=== PATIENT | female | born 1930 | race Caucasian/White ===

== ENCOUNTER 2016-10-27 13:10 | Inpatient (IN) | payer BC ==
[~2016-10-27] VITALS: Ht 157.5 cm; Wt 68.2 kg
[2016-10-27] MEDS ORDERED: DILTIAZEM-D5W 125MG/125ML DRIP 125 ML IV STA (13:21)
[2016-10-27] MEDS ORDERED: NITROGLYCERIN (SL) 0.4 MG TAB SL PRN ×2 (13:30→19:00)
[2016-10-27] MEDS ORDERED: FUROSEMIDE 40 MG INJ IV ONE (13:30)
[2016-10-27] MEDS: DILTIAZEM 25 MG INJ IV STA ×2 (13:30→13:53)
[2016-10-27 13:51] LABS: AADO2 Arterial 255.7 mmHg (7.0-24.0); Allen Test ACCEPTAB; Arterial Base Excess 0 mmol/L (-3.0-3); Arterial COHb 0 % (0.0-3.0); Arterial Fraction of Oxyhgb 99.2 % (93.0-99.0); Arterial HCO3 20.9 mmol/L (22.0-26.0); Arterial MetHb 0.2 % (0.0-1.5); Arterial Total Hemglobin 12.4 g/dl (12.0-18.0); Blood Gas IEPAP 15/5; MODE MASK - BIPAP
[2016-10-27 13:54] LABS: BASOPHILS % 0.4 % (0.0-2.0); EOSINOPHILS # 0.1 10^3/ul (0.0-0.5); HEMATOCRIT 37.3 % (37.0-47.0); HEMOGLOBIN 12.2 g/dl (12.0-16.0); LYMPHOCYTES # 2.3 10^3/ul (0.8-2.9); MEAN CORPUSCULAR HEMOGLOBIN 27.7 pg (29.0-33.0); MEAN CORPUSCULAR HGB CONC 32.8 g/dl (32.0-37.0); MEAN CORPUSCULAR VOLUME 84.5 fl (82.0-101.0); MEAN PLATELET VOLUME 8.6 fl (7.4-10.4); MONOCYTE # 0.5 10^3/ul (0.3-0.9); MONOCYTES % 6.3 % (0.0-11.0); NEUTROPHIL # 4.7 10^3/ul (1.6-7.5); NEUTROPHILS % 62.3 % (39.0-77.0); PLATELET COUNT 270 10^3/UL (140-440); RED BLOOD COUNT 4.42 10^6/ul (4.20-5.40); RED CELL DISTRIBUTION WIDTH 16.9 % (11.5-14.5); UNCORRECTED WBC 7.6 10^3/ul (4.8-10.8); WHITE BLOOD COUNT 7.6 10^3/ul (4.8-10.8)
[2016-10-27 13:55] LABS: ADD UMIC YES; URINE BILIRUBIN (Dip) NEGATIVE (NEGATIVE); URINE BLOOD (Dip) NEGATIVE (NEGATIVE); URINE COLOR LT. YELLOW (YELLOW); URINE GLUCOSE (Dip) NEGATIVE (NEGATIVE); URINE KETONES (Dip) NEGATIVE (NEGATIVE); URINE LEUKOCYTE ESTERASE (Dip) TRACE (NEGATIVE); URINE NITRITE (Dip) NEGATIVE (NEGATIVE); URINE TOTAL PROTEIN (Dip) NEGATIVE (NEGATIVE); URINE UROBILINOGEN (Dip) 0.2 E.U./dL (0.1-1.0)
[2016-10-27] MEDS ORDERED: HYDR-3671 PO (13:56)
--- NOTE | 2016-10-27 13:56 | RADRPT ---
PROCEDURE: XR Chest. CLINICAL INDICATION: Shortness of breath TECHNIQUE: Single AP portable chest COMPARISON: None. FINDINGS: The cardiomediastinal silhouette is within normal limits of size . Atherosclerotic calcification of the aortic arch. Hypoventilatory changes. .The lungs are clear without pleural effusion or focal c onsolidation. No pneumothorax. The osseous structures and soft tissues are unremarkable. IMPRESSION: 1. Hypoventilatory changes. No acute intrathoracic abnormality.. RPTAT:AAJJ Physician Brendan Date Time Electronically viewed and signed by Physician Brendan on 10/27/2016 13:56 GRAY/
[2016-10-27] MEDS ORDERED: THY15 PO (13:57)
[2016-10-27 13:58] LABS: CONDITION 1; INR 0.94; LH ANALYZER COMMENTS 1; PROTIME 12.6 Sec (12.2-14.2)
[2016-10-27] MEDS ORDERED: METO-448 PO (13:58)
[2016-10-27] MEDS ORDERED: SIMV10TA PO (13:58)
[2016-10-27 13:59] LABS: PARTIAL THROMBOPLASTIN TIME 32.1 Sec (25.0-35.0)
[2016-10-27] MEDS ORDERED: LISI40TA9 PO (13:59)
[2016-10-27] MEDS ORDERED: RIVA15TA PO (13:59)
[2016-10-27] MEDS ORDERED: FURO40TA4 PO (13:59)
[2016-10-27 14:02] LABS: ALBUMIN 4.4 g/dl (3.3-4.9); POTASSIUM 3.8 mmol/L (3.5-5.1)
[2016-10-27 14:03] LABS: SQUAMOUS EPITHELIAL CELL,UR FEW; URINE RBCS NONE SEEN /HPF (0)
[2016-10-27 14:04] LABS: BILIRUBIN,INDIRECT 0.3 mg/dl (0-1.1); BILIRUBIN,TOTAL 0.3 mg/dl (0.2-1.3); CREATININE 1.3 mg/dl (0.44-1.00)
[2016-10-27 14:05] LABS: ALBUMIN/GLOBULIN RATIO 1.22; CALCIUM 9.6 mg/dl (8.4-10.2)
[2016-10-27 14:17] LABS: TROPONIN-I 0.023 ng/ml (0.00-0.12)
[2016-10-27] MEDS ORDERED: SOD CHLORIDE 0.9% 100 ML ONE ×2 (15:04→15:30)
[2016-10-27] MEDS ORDERED: IODIXANOL LOCM 50 ML BTL ONE (15:04)
[2016-10-27] MEDS ORDERED: IODIXANOL LOCM 100 ML BTL ONE ×2 (15:04→15:30)
--- NOTE | 2016-10-27 16:19 | RADRPT ---
PROCEDURE: CT Pulmonary Angiogram. CLINICAL INDICATION: Chest pain and shortness of breath. TECHNIQUE: CT pulmonary angiogram and a CT scan of the chest with contrast was performed. The pat ient was scanned following the uncomplicated intravenous administration of 115 cc of Visipaque 320 i ntravenous contrast. 2-D coronal reformatted images were obtained from the axial source images. In addition, 3-D post processing was performed. Total exam DLP is 1205.48 mGy-cm. CTDIvol is 49.29 m Gy. One or more of the following dose reduction techniques were used: Automated exposure control, a djustment of the mA and/or kV according to patient size, use of iterative reconstruction technique. COMPARISON: None available. FINDINGS: The central pulmonary arteries are enlarged consistent with pulmonary artery hypertension. The pulm onary arteries are otherwise normal with no filling defect or lack of enhancement to suggest pulmona ry artery embolism. There is mild atelectasis at the lung bases posteriorly. The lungs are otherwise clear with no othe r airspace or interstitial disease. There is no pulmonary nodule or mass lesion. There is no pneumothorax. There is no mediastinal or hilar lymphadenopathy or mass. There is no pleural effusion. There is no pericardial effusion. The thoracic aorta is not dilated. There is calcification in the aorta consistent with atherosclero sis. There is no evidence of aortic dissection. Images through the upper abdomen demonstrate normal visualized portions of the spleen and adrenals. There is possible intrahepatic biliary dilatation. There is thoracic scoliosis convex left. The osseous structures are otherwise unremarkable. IMPRESSION: 1. Pulmonary artery hypertension. 2. No evidence of pulmonary artery embolism. 3. Mild atelectasis at the lung bases posteriorly. 4. Atherosclerosis. 5. Possible intrahepatic biliary dilatation. Clinical correlation advised. 6. Thoracic scoliosis convex left. RPTAT: QQ .Fili Richards MD, MD Date Time Electronically viewed and signed by .Fili Richards MD, MD on 10/27/2016 16:18 .R/
--- NOTE | 2016-10-27 17:28 | ERA ---
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 86-year-old female presents with shortness of breath. EMS reports that the patient became short of breath and had palpitations at home. The patient is extremely anxious and having difficulty providing adequate history. It appears that just prior to arrival she started feel her heart race and was short of breath. In the ER she continues describes shortness of breath. She denies any chest pain or pressure she denies any pleuritic pain, no headache. No fevers or chills or cough. ROS All systems reviewed and are negative except as per history of present illness. Medications Home Meds Reported Medications Rivaroxaban* (Xarelto*) 15 Mg Tablet, 15 MG PO DAILY, TAB 10/27/16 Lisinopril* (Lisinopril*) 40 Mg Tablet, 40 MG PO DAILY, #30 TAB 10/27/16 Furosemide* (Furosemide*) 40 Mg Tablet, 40 MG PO BID, TAB 10/27/16 Simvastatin* (Zocor*) 10 Mg Tablet, 10 MG PO QHS, #30 TAB 10/27/16 Metoprolol Tartrate* (Lopressor*) 25 Mg Tab, 12.5 MG PO BID, #60 TAB 10/27/16 Thyroid* ([place] Thyroid*) 15 Mg Tab, 15 MG PO DAILY, TAB 10/27/16 Hydralazine Hcl* (Hydralazine Hcl*) 25 Mg Tab, 25 MG PO BID Y for ELEVATED BLOOD PRESSURE, #90 TAB 10/27/16 Allergies Allergies: Coded Allergies: No Known Allergy (Verified , 10/27/16) PMhx/Soc Hx Cardiac Disorders: Yes (HTN, A fib, hypothyroid, ) Hx Alcohol Use: No Hx Substance Use: No Hx Tobacco Use: No Smoking Status: Unknown if ever smoked FmHx Family History: No diabetes Physical Exam Vitals Vital Signs Date Time Temp Pulse Resp B/P Pulse Ox O2 Delivery O2 Flow Rate FiO2 10/27/16 16:38 80 18 155/70 100 10/27/16 15:15 90 100 100 10/27/16 15:00 88 17 157/124 100 BIPAP 10/27/16 14:30 97.5 89 163/85 100 10/27/16 14:00 92 18 147/89 100 BIPAP 10/27/16 13:45 96 24 164/94 100 BIPAP 10/27/16 13:44 98 100 100 10/27/16 13:19 98.4 137 20 168/119 98 Physical Exam General: Uncomfortable and appears in distress Head: Normocephalic, atraumatic. Eyes: Pupils equally reactive, EOM intact ENT: Moist mucous membranes Neck: Supple, no lymphadenopathy Respiratory: Rales bilaterally, slight tachypnea Cardiovascular: Tachycardia, irregularly irregular, no murmurs, rubs, or gallops Abdominal: Soft, non-tender, non-distended, no peritoneal signs : Deferred MSK: No edema, no unilateral swelling, 5/5 strength Neurologic: Alert and oriented, moving all extremities, normal speech, no focal weakness, no cerebellar signs Skin: No rash Psych: Normal mood Result Diagram: 10/27/16 1336 10/27/16 1336 Results 24 hrs Laboratory Tests Test 10/27/16 13:21 10/27/16 13:36 10/27/16 13:46 Arterial Blood HCO3 20.9mmol/L Arterial Blood Base Excess 0mmol/L Arterial Blood Oxygen Saturation 99.4mmHG Alen Test ACCEPTAB Arterial Blood Gas Puncture Site Right Radial Arterial Blood Carboxyhemoglobin 0% Arterial Blood Date Drawn 10/27/2016 1:40:37 PM Arterial Blood Methemoglobin 0.2% Arterial Blood pCO2 (Temp correct) 24.3mmhg Arterial Blood pH (Temp corrected) 7.552 Arterial Blood pO2 (Temp corrected) 433.0mmHG Blood Gas A-a O2 Differential 255.7mmHg Blood Gas Actual Respiration Rate 40 Blood Gas Critical Value Read Back DR WOODSON Blood Gas IPAP/EPAP Ratio 24/01 Blood Gas Modality MASK - BIPAP Blood Gas Notified Time 10/27/2016 1:51:37 PM Blood Gas Notified Whom NENA Blood Gas Respiration Rate 16.0 Blood Gas Specimen Source Blood arterial Blood Gas Temperature 37.0C FiO2 100.0% Oxyhemoglobin Percent 99.2% Total Hemoglobin 12.4g/dl Activated Partial Thromboplast Time 32.1Sec Alanine Aminotransferase (ALT/SGPT) 32IU/L Albumin 4.4g/dl Albumin/Globulin Ratio 1.22 Alkaline Phosphatase 130IU/L Anion Gap 19 Aspartate Amino Transf (AST/SGOT) 41IU/L B-Type Natriuretic Peptide 1230PG/ML Basophils # 0.010^3/ul Basophils % 0.4% Blood Morphology Comment Blood Urea Nitrogen 21mg/dl Calcium Level 9.6mg/dl Carbon Dioxide Level 25mmol/L Chloride Level 99mmol/L Creatinine 1.30mg/dl Direct Bilirubin 0.00mg/dl Eosinophils # 0.110^3/ul Eosinophils % 1.0% Globulin 3.60g/dl Glucose Level 99mg/dl Hematocrit 37.3% Hemoglobin 12.2g/dl INR International Normalized Ratio 0.94 Indirect Bilirubin 0.3mg/dl Lymphocytes # 2.310^3/ul Lymphocytes % 30.0% Mean Corpuscular Hemoglobin 27.7pg Mean Corpuscular Hemoglobin Concent 32.8g/dl Mean Corpuscular Volume 84.5fl Mean Platelet Volume 8.6fl Monocytes # 0.510^3/ul Monocytes % 6.3% Neutrophils # 4.710^3/ul Neutrophils % 62.3% Nucleated Red Blood Cells # 0.010^3/ul Nucleated Red Blood Cells % 0.0/100WBC Platelet Count 06108^3/UL Potassium Level 3.8mmol/L Prothrombin Time 12.6Sec Prothrombin Time Ratio 1.0 Red Blood Count 4.4210^6/ul Red Cell Distribution Width 16.9% Sodium Level 139mmol/L Total Bilirubin 0.3mg/dl Total Protein 8.0g/dl Troponin I 0.023ng/ml White Blood Count 7.610^3/ul Urine Bilirubin NEGATIVE Urine Clarity CLEAR Urine Color LT. YELLOW Urine Glucose NEGATIVE% Urine Hemoglobin NEGATIVE Urine Ketones NEGATIVE Urine Leukocyte Esterase TRACE Urine Microscopic RBC NONE SEEN/HPF Urine Microscopic WBC 2-5/HPF Urine Nitrite NEGATIVE Urine Specific [place] <=1.005 Urine Squamous Epithelial Cells FEW Urine Total Protein NEGATIVE Urine Urobilinogen 0.2 E.U./dL Urine pH 5.5 Current Medications Medications (Trade) Dose Ordered Sig/Joel Route PRN Reason Start Time Stop Time Status Last Admin Dose Admin Diltiazem HCl 10 mg 10 mg ONCE STAT IV 10/27/16 13:21 10/27/16 13:24 DC Diltiazem HCl (Cardizem-D5W 125 Mg/125 ml Drip) 125 ml @ 5 mls/hr ONCE STAT IV 10/27/16 13:21 10/28/16 14:20 Nitroglycerin (Nitroglycerin (Sl Tab) 0.4 Mg) 1 tab Q5M UP TO 3 DOSES PRN SL CHEST PAIN 10/27/16 13:30 10/27/16 13:34 Furosemide (Lasix) 40 mg ONCE ONCE IV 10/27/16 13:30 10/27/16 13:31 DC 10/27/16 13:35 IV Flush 10 ml 10 ml STK-MED ONCE .ROUTE 10/27/16 15:04 10/27/16 15:05 DC 10/27/16 15:04 Sodium Chloride (NS) 100 ml @ ud STK-MED ONCE .ROUTE 10/27/16 15:04 10/27/16 15:05 DC 10/27/16 15:04 Iodixanol (Visipaque Locm) 100 ml STK-MED ONCE .ROUTE 10/27/16 15:04 10/27/16 15:05 DC 10/27/16 15:04 Iodixanol (Visipaque Locm) 50 ml STK-MED ONCE .ROUTE 10/27/16 15:04 10/27/16 15:05 DC 10/27/16 15:04 IV Flush 10 ml 10 ml STK-MED ONCE .ROUTE 10/27/16 15:30 10/27/16 15:31 DC 10/27/16 16:12 Sodium Chloride (NS) 100 ml @ ud STK-MED ONCE .ROUTE 10/27/16 15:30 10/27/16 15:31 DC 10/27/16 16:12 Iodixanol (Visipaque Locm) 100 ml STK-MED ONCE .ROUTE 10/27/16 15:30 10/27/16 15:31 DC 10/27/16 16:12 Procedures/MDM EKG, MONITORS, & DIAGNOSTIC IMAGING: EKG #1: 1315 EKG: I reviewed and interpreted a 12-lead EKG. Rhythm: A. fib with RVR Ectopy: None Intervals: No abnormalities ST segments: Subtle ST elevations in V1 and V2 less than 1 mm, ST depressions in lateral leads possibly rate related T waves: No contiguous inversions EKG #2 at 1416 EKG: I reviewed and interpreted a 12-lead EKG. Rhythm: Normal sinus rhythm Ectopy: None Intervals: No abnormalities ST segments: No elevations or depressions T waves: No contiguous inversions Chest x-ray: I reviewed and interpreted a 1 view of the chest Mediastinum: No enlargement Cardiac No cardiomegaly Airspace: Interstitial process, left-sided pleural effusion Bones: No evidence of fracture CT chest IMPRESSION: 1. Pulmonary artery hypertension. 2. No evidence of pulmonary artery embolism. 3. Mild atelectasis at the lung bases posteriorly. 4. Atherosclerosis. 5. Possible intrahepatic biliary dilatation. Clinical correlation advised. 6. Thoracic scoliosis convex left. RPTAT: QQ LAB INTERPRETATION: Negative troponin elevated BNP MEDICAL DECISION MAKING: The patient presents complaining of shortness of breath. Clinically she appeared to be in A. fib with RVR. She was appropriately anticoagulated with Xarelto. However, the patient appeared to have significant oxygen starvation. She appeared to be in distress. She had rales at the bases. This was concerning for possible flash pulmonary edema. The patient was given nitroglycerin, Lasix and started on positive pressure ventilation with dramatic improvement. However, the patient's chest x-ray did not exactly match with her clinical presentation. This is possibly related to interval improvement however I cannot rule out pulmonary embolism prompting CT of the chest. ER COURSE: The patient's CT shows no evidence of pulmonary embolism. The patient has had diuretic response. She has stabilized. She has no evidence of pneumonia. At this time I do believe the patient is stabilized and will benefit from admission I believe she is stable enough for telemetry. Continue close monitoring. The patient had interval improvement and was able to wean from positive pressure ventilation. The patient is now stable on supplemental O2. I kept the patient and/or family informed of laboratory and diagnostic imaging results throughout the emergency room course. DISPOSITION PLAN: Telemetry admission CONSULTATION: Accepting care team and consultations: I discussed the current laboratory data, diagnostic imaging and emergency care provided. Admitting team: Dr. Huerta Admitting team indication: Insurance directed Critical Care Note: Total time: 37 minutes Indication/Organ System Threat: Respiratory failure in the setting of hypertensive emergency, A. fib with RVR I spent the above amount of critical care time with the patient, not including billable procedures. This included chart review, consultations, repeat bedside evaluations, and titration of appropriate medications to prevent cardiopulmonary or respiratory collapse. Departure Diagnosis: Primary Impression: Atrial fibrillation with RVR Additional Impressions: Acute renal insufficiency Acute respiratory failure Qualified Code: J96.00 - Acute respiratory failure, unspecified whether with hypoxia or hypercapnia Acute pulmonary edema Hypertensive emergency Condition: Stable ALEXANDRE WOODSON MD Oct 27, 2016 17:28
[2016-10-27] MEDS ORDERED: ONDANSETRON 4 MG INJ IV PRN ×2 (18:00→19:00)
[2016-10-27] MEDS ORDERED: ACETAMINOPHEN 325 MG TAB PO PRN ×2 (18:00→19:00)
[2016-10-27] MEDS ORDERED: morphine 2 MG INJ IV PRN (19:00)
[2016-10-27] MEDS ORDERED: HYDROCODONE/APAP (5/325) TAB PO PRN (19:00)
[2016-10-27] MEDS ORDERED: NACL 0.9% 3 ML SYG IV SCH (19:00)
[2016-10-27] MEDS ORDERED: ZOLPIDEM 5 MG TAB PO PRN (19:00)
[2016-10-27 19:43] LABS: CK-MB 1.96 ng/ml (0.0-2.4)
[2016-10-27 19:46] LABS: TROPONIN-I 0.083 ng/ml (0.00-0.12)
--- NOTE | 2016-10-27 19:58 | HP ---
DATE OF ADMISSION: 10/27/2016 CHIEF COMPLAINT: Shortness of breath. HISTORY OF PRESENT ILLNESS: The patient is an 86-year-old female with a history of cardiac arrhythm ia, status post ablation several months ago. The patient also reports history of a hernia. Denies any heart failure. According to the patient's grandson who is at bedside and is providing history, the patient then developed shortness of breath and palpitations after taking some hydralazine. She has been on hydralazine for some time now. Immediately after she started feeling shortness of breat h and paramedics were called. She denies any chest pain now or before. She denies any other GI sym ptoms. No headaches, no fevers, chills. In the ED, the patient had a chest x-ray that showed no ac [place] abnormality. Chest CTA showed no PE. BNP was elevated at over 1000. The patient is requiring oxygen in the ER and she continues to feel short of breath. PAST MEDICAL HISTORY: Arrhythmia, status post ablation, some arrhythmia on a blood thinner, hypothy roidism, hypertension, dyslipidemia. PAST SURGICAL HISTORY: Cholecystectomy in the remote past. HOME MEDICATIONS: 1. Furosemide. 2. Hydralazine. 3. Lisinopril. 4. Metoprolol. 5. [place] thyroid. 6. Zocor. ALLERGIES: NO KNOWN DRUG ALLERGIES. FAMILY HISTORY: Denies. SOCIAL HISTORY: Denies any alcohol, tobacco, or drug abuse. She lives with her [id number]. REVIEW OF SYSTEMS: The patient is a poor historian, but a 12-point review of systems is negative ex cept for that as in HPI. PHYSICAL EXAMINATION: VITAL SIGNS: Temperature is 98.3, pulse 79, respiratory rate is 18, BP is 101/50, saturation 97% on room air. GENERAL: No acute distress, alert. HEENT: Normocephalic, atraumatic. CHEST: Clear to auscultation. CARDIOVASCULAR: Irregular. ABDOMEN: Nondistended, nontender, soft. There is a ventral hernia noted. EXTREMITIES: No clubbing, cyanosis, or edema. LABORATORIES: White count 7.6, hemoglobin 12.2, platelets are 270. Chemistry within normal limits except for BUN of 21, creatinine is 1.3, alkaline phosphatase 138. BNP is 1230, INR 0.94. UA withi n normal limits except for trace leukocyte esterase, WBCs 2 to 5. DIAGNOSTICS: Chest x-ray shows no acute disease. Chest CTA shows pulmonary hypertension, no eviden ce of PE, mild atelectasis, atherosclerosis, possible intrahepatic biliary dilation, thoracic scolio sis, ____ ASSESSMENT AND PLAN: 1. Acute respiratory distress. The patient's chest x-ray and CT showed no significant pulmonary ed dar but BNP is elevated. Will diurese with Lasix. We will obtain a 2D echo to rule out any heart f ailure. Shortness of breath may be related to the palpitations. 2. Palpitations, now resolved. The patient does have a history of arrhythmia. Family is unclear w hat type. She is status post ablation and is on a blood thinner. In the ED, the patient appears to have PACs causing an irregular sinus rhythm. Continue patient's home Xarelto as well as metoprolol . Will discontinue the hydralazine which appears to have exacerbated the palpitations. Hydralazine can cause reflex tachycardia. Once again, will recommend the patient to stop hydralazine both in h ouse and upon discharge. 3. Hypertension. Continue the patient's home lisinopril. 4. Hypothyroidism. Continue [place] thyroid. 5. Dyslipidemia. Continue Zocor. 6. Acute versus chronic kidney injury. Patient's baseline creatinine back in 2012 was within geraldo l limits. It is unclear if this is not progression of chronic kidney disease or an acute component. Will monitor creatinine. We will obtain a nephrology consultation in a.m. if creatinine continues to be elevated. No IV fluids. The patient appears to have respiratory distress from possible mild congestion and hence will refrain from giving IV fluids at this time. The patient may also have po ssible cardiorenal syndrome if she does indeed have heart failure. We will follow up on echo. Will diuresis. 7. Prophylaxis. Continue Xarelto ____ Dictated By: TAWANA SEGURA MD BS/NTS Conf#: [id number] DID#: [id number]
[2016-10-27] MEDS ORDERED: ATORVASTATIN 10 MG TAB PO SCH (21:00)
[2016-10-27 21:45] VITALS: TEMP 98
[2016-10-27] MEDS: METOPROLOL 25 MG TAB PO SCH (22:48)
[2016-10-27 22:53] VITALS: PULSE 82
[2016-10-27 23:00] VITALS: Ht 157.5 cm; Wt 68.2 kg
[2016-10-27 23:36] VITALS: BP 109/49; PULSE 76; RESP 18
[2016-10-28 00:05] VITALS: PULSE 72
[2016-10-28 01:50] LABS: CK-MB 1.68 ng/ml (0.0-2.4)
[2016-10-28 01:53] LABS: TROPONIN-I 0.089 ng/ml (0.00-0.12)
[2016-10-28 04:09] VITALS: PULSE 61
[2016-10-28] MEDS ORDERED: FUROSEMIDE 40 MG INJ IV SCH (06:00)
[2016-10-28 08:17] VITALS: PULSE 60
[2016-10-28 08:19] LABS: BASOPHILS % 0.5 % (0.0-2.0); EOSINOPHILS # 0.1 10^3/ul (0.0-0.5); EOSINOPHILS % 1.6 % (0.0-7.0); HEMATOCRIT 35.3 % (37.0-47.0); HEMOGLOBIN 11.6 g/dl (12.0-16.0); LYMPHOCYTES # 1.7 10^3/ul (0.8-2.9); LYMPHOCYTES % 28.3 % (15.0-51.0); MEAN CORPUSCULAR HEMOGLOBIN 27.9 pg (29.0-33.0); MEAN CORPUSCULAR HGB CONC 32.8 g/dl (32.0-37.0); MEAN CORPUSCULAR VOLUME 85.2 fl (82.0-101.0); MEAN PLATELET VOLUME 8.4 fl (7.4-10.4); MONOCYTE # 0.5 10^3/ul (0.3-0.9); MONOCYTES % 8.1 % (0.0-11.0); NEUTROPHIL # 3.8 10^3/ul (1.6-7.5); NEUTROPHILS % 61.5 % (39.0-77.0); PLATELET COUNT 243 10^3/UL (140-440); RED BLOOD COUNT 4.14 10^6/ul (4.20-5.40); RED CELL DISTRIBUTION WIDTH 16.9 % (11.5-14.5); UNCORRECTED WBC 6.2 10^3/ul (4.8-10.8); WHITE BLOOD COUNT 6.2 10^3/ul (4.8-10.8)
[2016-10-28 08:21] LABS: CONDITION 1; LH ANALYZER COMMENTS 1
[2016-10-28 08:30] VITALS: BP 147/65; RESP 14
[2016-10-28 08:31] LABS: POTASSIUM 4.1 mmol/L (3.5-5.1)
[2016-10-28 08:34] LABS: CREATININE 1.32 mg/dl (0.44-1.00)
[2016-10-28 08:35] LABS: CALCIUM 9.3 mg/dl (8.4-10.2); CHOL/HDL RATIO 2.9 RATIO; MAGNESIUM 2.1 mg/dl (1.7-2.5); PHOSPHORUS 4.7 mg/dl (2.5-4.9)
[2016-10-28 08:45] LABS: T3 UPTAKE 37.5 % (23.5-40.5)
[2016-10-28] MEDS ORDERED: THYROID 30 MG TAB PO SCH (09:00)
[2016-10-28] MEDS ORDERED: LISINOPRIL 20 MG TAB PO SCH (09:00)
[2016-10-28] MEDS ORDERED: RIVAROXABAN 15 MG TABLET PO SCH (09:00)
[2016-10-28] MEDS ORDERED: INFLUENZA VIRUS VACCINE 0.5 ML SYG IM* ONE (09:00)
[2016-10-28] MEDS: METOPROLOL 25 MG TAB PO SCH (09:25)
[2016-10-28 12:16] VITALS: PULSE 62
--- NOTE | 2016-10-28 12:38 | CONS ---
Date/Time of Note Date/Time of Note DATE: 10/28/16 TIME: 12:33 Assessment/Plan Assessment/Plan Chief Complaint/Hosp Course Palpitations/SOB/CP: in setting of afib with RVR with all symptoms resolved after concerting to sinus. trops negative, echo with preserved EF, and no further symptoms in sinus rhythm. Paroxysmal afib: on Xarelto. h/o ablation but recurrence this admission. Now back in sinus. 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 Referring Provider: TAWANA SEGURA of Present Illness 86 yo F with a h/o paroxysmal afib on Xarelto and s/p ablation per grandson 1 yr ago, who presented with palpitations, SOB. The pt apparently had sudden onset of the palpitations and SOB as well as some mild CP. In the ER she was noted to have afib with RVR on one EKG and subsequently sinus. Her symptoms resolved after converting to sinus and she is currently asymptomatic. per HPI Social History Smoking Status: Never smoker Exam/Review of Systems Vital Signs Vitals Vital Signs Date Time Temp Pulse Resp B/P Pulse Ox O2 Delivery O2 Flow Rate FiO2 10/28/16 08:30 97.7 70 14 147/65 99 10/28/16 05:57 3.0 32 10/27/16 23:36 Nasal Cannula Intake and Output 10/27/16 10/27/16 10/28/16 15:00 23:00 07:00 Intake Total 300 ml Output Total 1000 ml 450 ml Balance -1000 ml -150 ml Exam Constitutional: alert, oriented Psych: no complaints Head: atraumatic, normocephalic Neck: supple, No jvd Respiratory: clear to auscultation, No diminished breath sounds Cardiovascular: regular rate and rhythm, No edema, No systolic murmur Gastrointestinal: non-tender, soft Extremities: normal pulses Neurological: nl mental status, nl speech Results Initial EKG: afib with RVR Subsequent EKGs, sinus rhythm Result Diagram: 2/16/17 0705 2/16/17 0705 Results 24 hrs Laboratory Tests Test 10/27/16 13:21 10/27/16 13:36 10/27/16 13:46 10/27/16 19:00 Arterial Blood HCO3 20.9 L Arterial Blood Base Excess 0 Arterial Blood Oxygen Saturation 99.4 Alen Test ACCEPTAB Arterial Blood Gas Puncture Site Right Radial Arterial Blood Carboxyhemoglobin 0 Arterial Blood Date Drawn 10/27/2016 1:40:37 PM Arterial Blood Methemoglobin 0.2 Arterial Blood pCO2 (Temp correct) 24.3 L Arterial Blood pH (Temp corrected) 7.552 *H Arterial Blood pO2 (Temp corrected) 433.0 H Blood Gas A-a O2 Differential 255.7 H Blood Gas Actual Respiration Rate 40 Blood Gas Critical Value Read Back DR WOODSON Blood Gas IPAP/EPAP Ratio 24/01 Blood Gas Modality MASK - BIPAP Blood Gas Notified Time 10/27/2016 1:51:37 PM Blood Gas Notified Whom JLD Blood Gas Respiration Rate 16.0 Blood Gas Specimen Source Blood arterial Blood Gas Temperature 37.0 FiO2 100.0 Oxyhemoglobin Percent 99.2 H Total Hemoglobin 12.4 Activated Partial Thromboplast Time 32.1 Alanine Aminotransferase (ALT/SGPT) 32 Albumin 4.4 Albumin/Globulin Ratio 1.22 Alkaline Phosphatase 130 H Anion Gap 19 H Aspartate Amino Transf (AST/SGOT) 41 B-Type Natriuretic Peptide 1230 H Basophils # 0.0 Basophils % 0.4 Blood Morphology Comment Blood Urea Nitrogen 21 H Calcium Level 9.6 Carbon Dioxide Level 25 Chloride Level 99 Creatinine 1.30 H Direct Bilirubin 0.00 Eosinophils # 0.1 Eosinophils % 1.0 Globulin 3.60 H Glucose Level 99 Hematocrit 37.3 Hemoglobin 12.2 INR International Normalized Ratio 0.94 Indirect Bilirubin 0.3 Lymphocytes # 2.3 Lymphocytes % 30.0 Mean Corpuscular Hemoglobin 27.7 L Mean Corpuscular Hemoglobin Concent 32.8 Mean Corpuscular Volume 84.5 Mean Platelet Volume 8.6 Monocytes # 0.5 Monocytes % 6.3 Neutrophils # 4.7 Neutrophils % 62.3 Nucleated Red Blood Cells # 0.0 Nucleated Red Blood Cells % 0.0 Platelet Count 270 Potassium Level 3.8 Prothrombin Time 12.6 Prothrombin Time Ratio 1.0 Red Blood Count 4.42 Red Cell Distribution Width 16.9 H Sodium Level 139 Total Bilirubin 0.3 Total Protein 8.0 Troponin I 0.023 0.083 White Blood Count 7.6 Urine Bilirubin NEGATIVE Urine Clarity CLEAR Urine Color LT. YELLOW Urine Glucose NEGATIVE Urine Hemoglobin NEGATIVE Urine Ketones NEGATIVE Urine Leukocyte Esterase TRACE H Urine Microscopic RBC NONE SEEN Urine Microscopic WBC 2-5 Urine Nitrite NEGATIVE Urine Specific [place] <=1.005 L Urine Squamous Epithelial Cells FEW Urine Total Protein NEGATIVE Urine Urobilinogen 0.2 E.U./dL Urine pH 5.5 Creatine Kinase 202 H Creatine Kinase Index 1.0 Creatinine Kinase MB (Mass) 1.96 Test 10/28/16 01:10 10/28/16 07:05 Creatine Kinase 188 Creatine Kinase Index 0.9 Creatinine Kinase MB (Mass) 1.68 Troponin I 0.089 Anion Gap 15 B-Type Natriuretic Peptide 1090 H Basophils # 0.0 Basophils % 0.5 Blood Morphology Comment Blood Urea Nitrogen 24 H Calcium Level 9.3 Carbon Dioxide Level 31 Chloride Level 100 Cholesterol Level 150 Cholesterol/HDL Ratio 2.9 Creatinine 1.32 H Eosinophils # 0.1 Eosinophils % 1.6 Free Thyroxine Index 1.05 Glucose Level 91 HDL Cholesterol 51 Hematocrit 35.3 L Hemoglobin 11.6 L Hemoglobin A1c 6.1 H LDL Cholesterol, Calculated 78 Lymphocytes # 1.7 Lymphocytes % 28.3 Magnesium Level 2.1 Mean Corpuscular Hemoglobin 27.9 L Mean Corpuscular Hemoglobin Concent 32.8 Mean Corpuscular Volume 85.2 Mean Platelet Volume 8.4 Monocytes # 0.5 Monocytes % 8.1 Neutrophils # 3.8 Neutrophils % 61.5 Nucleated Red Blood Cells # 0.0 Nucleated Red Blood Cells % 0.0 Phosphorus Level 4.7 Platelet Count 243 Potassium Level 4.1 Red Blood Count 4.14 L Red Cell Distribution Width 16.9 H Sodium Level 142 Thyroxine (T4) 2.8 L Triglycerides Level 107 Triiodothyronine (T3) Uptake 37.5 White Blood Count 6.2 Medications Medications Current Medications Ondansetron HCl (Zofran Inj) 4 mg Q6H PRN IV NAUSEA AND/OR VOMITING; Start at 19:00 Acetaminophen (Tylenol Tab) 650 mg Q6H PRN PO PAIN LEVEL 1-3 OR FEVER; Start at 19:00 Acetaminophen/ Hydrocodone Bitart ([place] (5/325)) 1 tab Q6H PRN PO MODERATE PAIN LEVEL 4-6; Start 10/27/16 at 19:00 Morphine Sulfate (morphine) 2 mg Q4H PRN IV SEVERE PAIN LEVEL 7-10; Start 10/27 at 19:00 Zolpidem Tartrate (Ambien) 5 mg QHS PRN PO SLEEP Last administered on 22:47; Admin Dose 5 MG; Start 10/27/16 at 19:00 Nitroglycerin (Nitroglycerin (Sl Tab) 0.4 Mg) 1 tab Q5M PRN SL CHEST PAIN; Start 10/27/16 at 19:00 Lisinopril (Zestril) 40 mg DAILY PO Last administered on 10/28/16 09:23; Admin Dose 40 MG; Start 10/28/16 at 09:00 Metoprolol Tartrate (Lopressor) 12.5 mg BID PO Last administered on 10/28/16 09:25; Admin Dose 12.5 MG; Start 10/27/16 at 21:00 Rivaroxaban (Xarelto) 15 mg DAILY PO Last administered on 10/28/16 09:38; Admin Dose 15 MG; Start 10/28/16 at 09:00 Thyroid ([place] Thyroid) 15 mg DAILY PO Last administered on 10/28/16 09:38; Admin Dose 15 MG; Start 10/28/16 at 09:00 Atorvastatin Calcium (Lipitor) 10 mg HS PO Last administered on 10/27/16 22:47 ; Admin Dose 10 MG; Start 10/27/16 at 21:00 JD GRAY Oct 28, 2016 12:38
[2016-10-28 12:43] VITALS: BP 124/58; RESP 16
--- NOTE | 2016-10-28 13:21 | PDOCDIS ---
Discharge Instructions CONDITION Patient Condition: Good HOME CARE INSTRUCTIONS: Diet Instructions: Regular ACTIVITY: Activity Restrictions: No Restrictions FOLLOW UP/APPOINTMENTS Appointments F/U WITH YOUR PCP IN 1-2 WEEKS TAWANA SEGURA Oct 28, 2016 13:21
--- NOTE | 2016-10-28 14:38 | RADRPT ---
Echocardiogram Report Patient Name: SANJAY MURDOCK Gender: Female Date: 1930 Study Date: 28-Oct-2016 Blender Snuff: Gwendolyn Koenig [facility] Location: 5545 Ref. Physician: TAWANA SEGURA Quality: Adequate Procedures: Transthoracic echocardiogram with complete 2D, M-Mode, and doppler examination. Indications: Eval for Congestive Heart Failure. 2D/M Mode Doppler Measurement Value Normal Ranges Measurement Value Normal Ranges LVIDd 2D 4.0 3.5 - 5.6 cm AV Peak Martin 1.2 m/sec LVIDs 2D 2.2 2.1 - 4.1 cm AV Peak PG 5.6 mmHg LVPWd 2D 1.2 0.6 - 1.1 cm LVOT Peak Martin 1.0 m/sec IVSd 2D 1.3 0.6 - 1.1 cm LVOT Peak PG 3.8 mmHg AoR Diam 2D 2.8 2.0 - 3.7 cm MV E Peak Martin 0.4 m/sec EDV 2D 70.5 cm3 MV A Peak Martin 0.6 m/sec ESV 2D 10.1 cm3 MV E/A 0.7 LA Dimen 2D 4.9 2.3 - 4.0 cm MV Decel Time 211 msec MV Decel Kings 2 MV E/A 0.7 TR Peak Martin 2.3 m/sec TR Peak PG 22.0 mmHg RVSP 25.0 mmHg Findings Left Ventricle: Normal left ventricular systolic function. Normal left ventricular cavity size. Mild concentric left ventricular hypertrophy. Ejection fraction is visually estimated at 65 %. Tissue Doppler/Mitral Doppler indices are consistent with impaired relaxation (Stage I diastolic dysfunction). Right Ventricle: Normal right ventricular size. Normal right ventricular systolic function. Left Atrium: There is severe enlargement of left atrium. Right Atrium: The right atrium is normal in size. Mitral Valve: Mitral valve leaflets appear mildly thickened. Trace mitral regurgitation. Aortic Valve: Aortic cusps appear mildly calcified. Mild aortic valve regurgitation. Tricuspid Valve: Normal appearance of the tricuspid valve. Estimated peak PA systolic pressure 25 mmHg. There is mild tricuspid regurgitation. Pulmonic Valve: Normal pulmonic valve appearance. Pericardium: Normal pericardium with no significant pericardial effusion. Aorta: Normal aortic root. IVC: Normal size and normal respiratory collapse consistent with normal right atrial pressure. Conclusions 1.Normal left ventricular systolic function. Normal left ventricular cavity size. Mild concentric left ventricular hypertrophy. Ejection fraction is visually estimated at 65 %. Tissue Doppler/Mitral Doppler indices are consistent with impaired relaxation (Stage I diastolic dysfunction). 2.Mild aortic valve regurgitation. 3.Estimated peak PA systolic pressure 25 mmHg based on RA pressure of 3 mmHg. Electronically Signed By: Dallin Rizzo 28-Oct-2016 14:38:05 -0800 Patient Name: SANJAY MURDOCK Study Date: 28-Oct-2016 [id number]
--- NOTE | 2016-10-28 15:20 | DS ---
DATE OF ADMISSION: 10/27/2016 DATE OF DISCHARGE: 10/28/2016 DISCHARGE DIAGNOSES: 1. Atrial fibrillation with rapid ventricular response now converted to sinus. Continue home metop rolol and Xarelto. 2. Acute respiratory distress secondary to likely atrial fibrillation with rapid ventricular respon se, no significant pulmonary edema noted. No indication for Lasix upon discharge. The patient not requiring any further oxygen. 3. History of arrhythmia, status post ablation in the past. The exact nature of the arrhythmia is unclear. The patient on a beta shalini and anticoagulants. 4. Hypertension. Continue home lisinopril and metoprolol. 5. Hyperthyroidism. Continue home Gary thyroid. HOSPITAL COURSE: The patient is an 86-year-old female with a history of cardiac arrhythmia, status post ablation several months ago. The patient also has a history of hypertension and hypothyroidism . The patient presents with shortness of breath and palpitations. Patient was noted to be in atria l fibrillation with RVR and converted to sinus rhythm. Patient does take Xarelto and beta shalini a t home. The patient had a chest x-ray and CT of the chest that showed no significant pulmonary diana a. The BNP was elevated at 1090. The patient was titrated off oxygen. She does not use any oxygen at home. The patient was seen by cardiology. Recommendation was for patient to continue her home Xarelto and beta shalini. No indication for any Lasix upon discharge, no further diagnostics as nee ded as 2D echo showed no significant findings. EF was 65% with stage I diastolic dysfunction. Live r profile of note was checked. LDL was within normal limits at 78. A1c was 6.1. The patient was d oing well on the day of discharge. His vitals, labs and physical exam were stable on the day of dis charge. The patient had no acute complaints and questions were answered. CONDITION ON DISCHARGE: Stable. DISPOSITION: To home. MEDICATIONS: The patient is to continue her usual home medications. Recommendation was to stop her home hydralazine as patient took hydralazine prior to the onset of her atrial fibrillation with RVR and may have caused reflex tachycardia and hence recommendation was for patient to discontinue the hydralazine which she was taking with p.r.n. medication anyways. No new medications were prescribed. FOLLOWUP: The patient is to follow up with her PCP in 1 to 2 weeks. Greater than 30 minutes was spent coordinating discharge of patient. Dictated By: TAWANA SEGURA MD BS/NTS Conf#: [id number] DID#: [id number]
== END 2016-10-28 15:01 | disposition home or self-care (01) | DRG 309 ==
LOC: E/R 13:10 → MS4 17:53
PROVIDERS: ADMIT Internal Medicine; ATTEND Internal Medicine
DX: I48.91 Unspecified atrial fibrillation (principal); N17.9 Acute kidney failure, unspecified; R06.00 Dyspnea, unspecified; E03.9 Hypothyroidism, unspecified; E78.5 Hyperlipidemia, unspecified; I12.9 Hypertensive chronic kidney disease with stage 1 through stage 4 chronic kidney disease, or unspecified chronic kidney disease; N18.9 Chronic kidney disease, unspecified; E05.90 Thyrotoxicosis, unspecified without thyrotoxic crisis or storm
CPT/HCPCS: 36415; 36600; 71010; 71275; 80048; 80053; 80061; 81001; 81003; 82550; 82553; 82803; 83036; 83735; 83880; 84100; 84436; 84479; 84484; 85025; 85610; 85730; 90686; 93005; 93306; 94660; 96374; J1940; Q9967